=== PATIENT | male | born 1975 | race African-American/Black ===

== ENCOUNTER 2019-02-24 12:01 | Emergency (ER) | payer MEDICAID ==
[~2019-02-24] VITALS: Ht 180.3 cm; Wt 104.0 kg
[2019-02-24 12:05] VITALS: BP 113/67
[2019-02-24] MEDS ORDERED: SODIUM CHLORIDE 0.9% 1,000 ML IV ONE (12:23)
== END 2019-02-24 12:20 | disposition left against medical advice (07) ==
LOC: ER 12:01
DX: R56.9 Unspecified convulsions (principal); M25.511 Pain in right shoulder; Z91.19 Patient's noncompliance with other medical treatment and regimen
CPT/HCPCS: 99283; J7030